=== PATIENT | male | born 1990 | race American Indian/Alaskan Native ===

== ENCOUNTER 2017-12-09 02:53 | Emergency (ER) | payer SELFPAY ==
[2017-12-09 04:38] LABS: Basophils % (Auto) 0.5 % (0.0-1.8); Eosinophils # (Auto) 0.3 K/mm3 (0.0-0.4); Eosinophils % (Auto) 3.8 % (0.0-4.3); Hemoglobin 12.9 gm/dl (11.8-15.2); Lymphocytes # (Auto) 2.2 K/mm3 (1.2-5.4); Lymphocytes % (Auto) 33.1 % (13.4-35.0); Mean Corpuscular HGB Conc 34 % (32-34); Mean Corpuscular Hemoglobin 27 pg (28-32); Mean Corpuscular Volume 80 fl (84-94); Monocytes # (Auto) 0.5 K/mm3 (0.0-0.8); Monocytes % (Auto) 7.1 % (0.0-7.3); Platelet Count 211 K/mm3 (140-440); Red Blood Count 4.73 M/mm3 (3.65-5.03); Red Cell Distribution Width 15.3 % (13.2-15.2)
[2017-12-09 04:50] LABS: Alanine Aminotransferase 16 units/L (7-56); Albumin 4.6 g/dL (3.9-5); BUN/Creatinine Ratio 13; Blood Urea Nitrogen 10 mg/dL (9-20); Calcium 9.2 mg/dL (8.4-10.2); Hemolysis Index 0
[2017-12-09 09:04] VITALS: BP 119/59
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
[2017-12-09 10:15] LABS: Bilirubin,Urine NEG (Negative); Blood,Urine NEG (Negative); Color,Urine Yellow (Yellow); Mucus,Urine FEW /HPF; Protein,Urine <15 mg/dL mg/dL (Negative); Urobilinogen,Urine < 2.0 mg/dL (<2.0); WBC,Urine < 1.0 /HPF (0.0-6.0)
[2017-12-09] MEDS ORDERED: TORADOL IV ONE (10:43)
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
== END 2017-12-09 11:37 | disposition home or self-care (01) ==
LOC: ED 02:53
DX: R10.84 Generalized abdominal pain (principal); K59.00 Constipation, unspecified; F17.200 Nicotine dependence, unspecified, uncomplicated
CPT/HCPCS: 36415; 74177; 80053; 81001; 85025; 96374; 99284; J1885; Q9967

== ENCOUNTER 2017-12-13 02:30 | Emergency (ER) | payer SELFPAY ==
[2017-12-13 02:40] VITALS: BP 115/51
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
--- NOTE | 2017-12-17 14:16 | XRay Report ---
FINAL REPORT PROCEDURE: XR ABDOMEN 1V AP TECHNIQUE: Abdominal radiograph, single supine AP view. HISTORY: No BM X 7 days COMPARISON: No prior studies are available for comparison. FINDINGS: Bowel gas pattern:There is retained barium in the colon. There is moderate stool. There is no obstruction or fecal impaction. There is no bowel wall thickening. The appendix is visible and appears normal.. Masses or calcifications:There are densities in the mid abdomen which could be retained barium or foreign bodies.. Bony structures:No significant abnormality. Other:There is no pneumoperitoneum.. IMPRESSION: There is retained barium in the colon. There is moderate stool. There is no obstruction or fecal impaction. There is no bowel wall thickening. The appendix is visible and appears normal.. There is no pneumoperitoneum..
== END 2017-12-13 05:25 | disposition home or self-care (01) ==
LOC: ED 02:44
DX: R10.84 Generalized abdominal pain (principal); K59.02 Outlet dysfunction constipation; F17.200 Nicotine dependence, unspecified, uncomplicated; Z93.3 Colostomy status
CPT/HCPCS: 74018; 99283